=== PATIENT | female | born 1975 | race Caucasian/White ===

== ENCOUNTER 2017-01-28 22:35 | Inpatient (IN) | payer MEDICARE ==
--- NOTE | ~2017-01-28 | HP ---
Unit #: [id number] #: [id number] Patient: ALLY CHO [id number] [place] [address] [id number] I MR#: [id number] NAME: ALLY CHO. ROOM: [facility] Age: 41 Sex: F Admission Date: 01/28/2017 : 1975 Attending Physician: Carlos Calhoun M.D. Admitting Physician: Carlos Calhoun M.D. Primary Care Physician: Generic Doctor Not In System HISTORY AND PHYSICAL HISTORY OF PRESENT ILLNESS The patient states she is here due to depression, alcohol and heroin abuse. PAST MEDICAL HISTORY None. PAST SURGICAL HISTORY Partial hysterectomy and . ALLERGIES Toradol, oxycodone, Seroquel, Haldol and any product containing fish. SOCIAL HISTORY Positive for smoking, alcohol and drugs. FAMILY HISTORY Noncontributory. REVIEW OF SYSTEMS CONSTITUTIONAL: No fever or chills. HEENT: Denies any sore throat, ear pain or runny nose. CARDIOVASCULAR: Denies chest pain, irregular heart rhythm or palpitations. CHEST: Denies shortness of breath or cough. No hemoptysis. GASTROINTESTINAL: Denies nausea, vomiting, diarrhea or chronic constipation. ENDOCRINE: Denies history of increased thirst or urination. No recent significant weight loss or gain. GENITOURINARY: Denies dysuria, frequency, or hematuria. SKIN: Denies any rashes. HEMATOLOGIC: Denies history of increased bleeding or bruising. MUSCULOSKELETAL: Denies any hot, swollen joints. No generalized muscle pain. NEUROLOGIC: Denies problems with vision or speech. No frequent, severe headaches. No numbness, tingling or weakness in any extremities. Denies loss of bladder or bowel control. CURRENT MEDICATIONS None. PHYSICAL EXAMINATION VITAL SIGNS: Blood pressure 134/60, heart rate 88, respirations 18. HEIGHT: 6 feet. Unit #: [id number] #: [id number] Patient: ALLY CHO WEIGHT: 179 pounds. SKIN: Warm and dry without rash or lesion. Tattoo to bilateral lower extremities and left upper extremity. HEENT: Normocephalic. TMs not viewed. Oral and nasal passages clear. Conjunctivae clear. PERRLA. EOMs intact. NECK: Supple without lymphadenopathy or thyromegaly. HEART: Regular rate and rhythm without murmur. LUNGS: Clear. ABDOMEN: Soft, nontender, without masses or hepatosplenomegaly. : Not done. EXTREMITIES: No evidence of cyanosis, clubbing or edema. Moves all without focal deficit. NEUROLOGICAL: Grossly within normal limits. Cranial Nerves: II: Visual rodriguez are intact. III, IV AND : Extraocular movements are intact. Pupils are equal, round and reactive to light. V: Facial sensation is grossly normal. VII: Facial movements and expression are normal. VIII: Auditory acuity grossly intact. IX, X: Uvula is midline. Phonation is normal. XI: Patient shrugs shoulders and turns head normally. XII: Tongue protrudes in the midline. Sensory and Motor Function: Sensory and motor sensation is grossly normal. Motor: moves all extremities well. Coordination: Gait is normal. Deep Tendon Reflexes: Intact. IMPRESSION Psychiatric admission. RECOMMENDATIONS PSYCHIATRIC: Per psychiatrist. MEDICAL: No contraindications to participate in facility's activities. MEDICAL PROGNOSIS Good. Dictated by... Krystyna Knott/jj TD: 01/29/2017 19:00 JOB #: [id number] HISTORY AND PHYSICAL X Brit Mitchell APR X HISTORY AND PHYSICAL
--- NOTE | ~2017-01-28 | PN ---
Unit #: [id number] #: [id number] Patient: ALLY CHO [id number] [facility] [address] [place] [address] [id number] I MR#: [id number] NAME: ALLY CHO. ROOM: P110 Age: 41 Sex: F Admission Date: 01/28/2017 : 1975 Attending Physician: Carlos Calhoun M.D. Admitting Physician: Carlos Calhoun M.D. Primary Care Physician: Tacho Doctor Not In System [facility] PROGRESS NOTES DATE 02/02/2017 DISCUSSION The patient is expressing interest in possible residential chemical dependence treatment, but the next moment he is demanding discharge from the hospital stating that "they are not giving no fucking snacks or anything." I have agreed to increase her food portions to large ones, and I have encouraged the patient to remain in the hospital so that perhaps she can avail herself of more definitive aftercare and thus prevent the need for readmission in the next few days. She is agreeable. Dictated by... Carlos Calhoun M.D. CB/john TD: 02/02/2017 14:36 JOB #: [id number] [facility] PRO[facility] NOT[facility] Page 1 of 1 X Carlos Calhoun MD X PROGRESS NOTE
--- NOTE | ~2017-01-28 | PN ---
Unit #: [id number] #: [id number] Patient: ALLY CHO [id number] [facility] [address] [place] [address] [id number] I MR#: [id number] NAME: ALLY CHO. ROOM: P110 Age: 41 Sex: F Admission Date: 01/28/2017 : 1975 Attending Physician: Carlos Calhoun M.D. Admitting Physician: Carlos Calhoun M.D. Primary Care Physician: Generic Doctor Not In System [facility] PROGRESS NOTES DATE 01/31/2017 DISCUSSION The patient was resting comfortably when seen by this physician but is now demanding "something for anxiety. We have added Thorazine 50 mg q.6 h. p.r.n. Otherwise the patient's detox continues uneventfully. Dictated by... Carlos Calhoun M.D. CB/jt TD: 01/31/2017 18:17 JOB #: [id number] [facility] PROGRESS NOTES X Carlos Calhoun MD PROGRESS NOTE
--- NOTE | ~2017-01-28 | PN ---
Unit #: [id number] #: [id number] Patient: ALLY CHO [id number] [facility] [address] [place] [address] [id number] I MR#: [id number] NAME: ALLY CHO ROOM: [facility] Age: 41 Sex: F Admission Date: 01/28/2017 : 1975 Attending Physician: Carlos Calhoun M.D. Admitting Physician: Carlos Calhoun M.D. Primary Care Physician: Generic Doctor Not In System [facility] PROGRESS NOTES DATE 02/03/2017 DISCUSSION The patient is abed today. She offers no new complaints and states that she and her social media assistant are in contact with the [facility] regarding possible residential chemical dependence treatment at that facility. Dictated by... Carlos Calhoun M.D. CB/margaret TD: 02/03/2017 14:42 JOB #: [id number] [facility] PROGRESS NOTES Page 1 of 1 X Carlos Calhoun MD X PROGRESS NOTE
--- NOTE | ~2017-01-28 | PA ---
Unit #: [id number] #: [id number] Patient: ALLY CHO [id number] [facility] [address] [place] [address] [id number] I MR#: [id number] NAME: ALLY CHO. ROOM: P110 Age: 41 Sex: F Admission Date: 01/28/2017 : 1975 Date of Assessment: 01/29/2017 Attending Physician: Carlos Calhoun M.D. Admitting Physician: Carlos Calhoun M.D. Primary Care Physician: Generic Doctor Not In System PSYCHIATRIC ASSESSMENT IDENTIFYING INFORMATION The patient is a 41-year-old white female well known to this physician. She was last discharged on 12/20/2016 and returned complaining of suicidal ideation. CHIEF COMPLAINT None given. INFORMANT Patient, reliability is poor. HISTORY OF PRESENT ILLNESS The patient is a 41-year-old white female well known to this physician from multiple previous admissions to this facility. She is admitted with recurrent abuse of alcohol, heroin, and methamphetamine. The patient reports that she has been increasingly depressed recently and has not been attending to activities of daily living having increasing suicidal thoughts. The patient is currently abed and cannot be aroused for interview. For more complete history of present illness, please refer to previously dictated notes. PAST PSYCHIATRIC HISTORY Reviewed, no changes. PAST MEDICAL HISTORY Reviewed, no changes. MEDICATIONS At the time of admission, the patient has no home medications. ALLERGIES Toradol, oxycodone, Seroquel, Haldol, and fish-containing products. FAMILY HISTORY Reviewed, no changes. SOCIAL HISTORY Reviewed, no changes. MENTAL STATUS EXAMINATION Examination at this time reveals the patient to be an obese disheveled white female appearing her stated age. She is in no apparent physical distress at the time of examination. Further examination cannot take Unit #: [id number] #: [id number] Patient: ALLY CHO place if the patient cannot be aroused. ASSETS AND LIABILITIES The patient's assets to be assessed. Liabilities: Sociopathy, lack of resources, health issues. DIAGNOSTIC IMPRESSION 1. Dysthymic disorder. 2. Methamphetamine use disorder. 3. Alcohol use disorder. 4. Opioid use disorder. 5. Antisocial personality disorder. 6. Hepatitis C. 7. Obesity. TREATMENT PLAN The patient remains hospitalized for safety and stabilization. Routine detoxification protocol for opioids and alcohol has been initiated. The patient will participate in appropriate order of milieu activities. ESTIMATED LENGTH OF STAY 3 to 5 days. Dictated by... Machelle Kimball TD: 01/29/2017 14:56 JOB #: [id number] PSYCHIATRIC ASSESSMENT X Carlos Calhoun MD X PSYCHIATRIC ASSESSMENT
--- NOTE | ~2017-01-28 | CO ---
Unit #: [id number] #: [id number] Patient: REMA CHO [id number] [place] [address] [id number] I MR#: [id number] NAME: REMA CHO. ROOM: [facility] Age: 41 Sex: F Admission Date: 01/28/2017 : 1975 Attending Physician: Carlos Calhoun M.D. Consultation Date: 02/01/2017 CONSULTATION REPORT SUBJECTIVE Rema is a 41-year-old, admitted because of her continued drug use. On 02/01/2017, she complained of knee and foot pain. She denied any injury. She has been observed repeatedly by staff and by this practitioner, ambulating the hallways without difficulty or complaints of discomfort. On exam, there are no red swollen joints. Skin is intact. ASSESSMENT Musculoskeletal pain. She has Tylenol and may use this p.r.n. Dictated by... Jerrell OchoaALuke-Abdiaziz. for Machelle Whitney/viktoria TD: 02/05/2017 22:36 JOB #: [id number] CONSULTATION REPORT Page 1 of 1 X Anabella Thorne CONSULTATION REPORT
--- NOTE | ~2017-01-28 | PN ---
Unit #: [id number] #: [id number] Patient: ALLY CHO [id number] [facility] [address] [place] [address] [id number] I MR#: [id number] NAME: ALLY CHO. ROOM: [facility] Age: 41 Sex: F Admission Date: 01/28/2017 : 1975 Attending Physician: Carlos Calhoun M.D. Admitting Physician: Carlos Calhoun M.D. Primary Care Physician: Tacho Doctor Not In System [facility] PROGRESS NOTES DATE 02/01/2017 DISCUSSION The patient remains abed with little participation within the therapeutic milieu. She is complaining of some foot and leg pain, and I will ask for med consult related to this. She is also requesting a sexually transmitted diseases panel. She is expressing some interest in residential chemical dependence treatment, but then actually requests discharge. She does agree to remain in the hospital for at least tomorrow so that she can discuss her treatment options with her director social welfare. Dictated by... Carlos Calhoun M.D. MISAEL/john TD: 02/01/2017 14:22 JOB #: [id number] [facility] PROGRESS NOTES Page 1 of 1 X Carlos Calhoun MD PROGRESS NOTE
--- NOTE | ~2017-01-28 | PN ---
Unit #: [id number] #: [id number] Patient: ALLY CHO [id number] [facility] [address] [place] [address] [id number] I MR#: [id number] NAME: ALLY CHO. ROOM: [facility] Age: 41 Sex: F Admission Date: 01/28/2017 : 1975 Attending Physician: Carlos Calhoun M.D. Admitting Physician: Carlos Calhoun M.D. Primary Care Physician: Tacho Doctor Not In System [facility] PROGRESS NOTES DATE 01/30/2017 DISCUSSION The patient abed resting comfortably today. Staff reports no management issues. We continue current treatment. Dictated by... Carlos Calhoun M.D. CB/jt TD: 01/30/2017 21:24 JOB #: [id number] [facility] PROGRESS NOTES X Carlos Calhoun MD X PROGRESS NOTE
--- NOTE | ~2017-01-28 | DS ---
Unit #: [id number] #: [id number] Patient: ALLY CHO [id number] [facility] [address] [place] [address] [id number] I MR#: [id number] NAME: ALLY CHO. ROOM: [facility] Age: 41 Sex: F Admission Date: 01/28/2017 : 1975 Discharge Date: 02/04/2017 Attending Physician: Carlos Calhoun M.D. DISCHARGE SUMMARY REASON FOR ADMISSION The patient is a 41-year-old white female, admitted with ongoing alcohol and polysubstance abuse and suicidal ideation. HOSPITAL COURSE The patient was admitted to the [address] [place] [address] unit and placed on suicide precautions. Routine detoxification protocol for opioids and alcohol and sedative-hypnotics was ordered. The patient had little in the way of signs or symptoms of withdrawal. Routine duty to warn was undertaken. The patient was placed on Thorazine 50 mg q.6 hours p.r.n. anxiety. On 01/31/2017, she had initially made statements regarding a wish to render residential chemical dependence treatment and on 02/04/2017, arrangements were made for the patient to go to the [facility] program. Discharge was ordered. FINAL DIAGNOSES Dysthymic disorder; methamphetamine use disorder; alcohol use disorder; opioid use disorder; antisocial personality disorder; hepatitis C; obesity. DISPOSITION ON DISCHARGE The patient is discharged on the following medications; none. No dietary or physical restrictions were placed upon the patient at the time of discharge. FOLLOWUP Followup will take place through the auspices of [facility] mental [facility] resources and the [facility]. PROGNOSIS The patient's prognosis remains guarded. Dictated by... Carlos Calhoun M.D. CB/viktoria TD: 02/05/2017 06:49 JOB #: [id number] Unit #: [id number] #: [id number] Patient: ALLY CHO DISCHARGE SUMMARY Page 1 of 1 X Carlos Calhoun MD X DISCHARGE SUMMARY
[~2017-01-28 22:35] MED LIST: DEPAKOTE PO; SEROQUEL PO
[2017-01-30 12:02] LABS: ALBUMIN SERUM 4.1 g/dL (3.5-5.0); BILIRUBIN,TOTAL 0.6 mg/dL (0.2-2.0); BUN/CREATININE RATIO 13.33; CALCIUM SERUM 9.5 mg/dL (8.4-10.2); CREATININE SERUM 1.2 mg/dL (0.6-1.4); GLOM FILT RATE Estimated 52.4 mL/min (>60); POTASSIUM 4.8 mmol/L (3.5-5.1); PROTEIN TOTAL SERUM 7.4 g/dL (6.0-8.3)
[2017-01-30 12:07] LABS: THYROID STIMULATING HORMONE 1.96 uIU/ml (0.34-5.60)
[2017-01-30 12:14] LABS: FREE THYROXIN (T4) 0.81 ng/dL (0.58-1.64)
[2017-01-30 12:51] LABS: BASOPHIL% 0.5 % (0-2.5); DIFF IND NO; EOSINOPHIL# 0.3 X10e3 (0-0.7); EOSINOPHIL% 5.5 % (0.0-7.0); HEMATOCRIT 42.8 % (35.0-45.0); LYMPHOCYTE# 2.4 X10e3 (1.0-3.5); LYMPHOCYTE% 48.4 % (17.0-45.0); MEAN CELL VOLUME 96.7 FL (83-96); MEAN CORPUSCULAR HEMOGLOBIN 31.6 PG (28-34); MEAN CORPUSCULAR HGB CONC 32.6 g/dL (30-36); MEAN PLATELET VOLUME 9.6 FL (6.5-11.5); MONOCYTE# 0.6 X10e3 (0-1.0); MONOCYTE% 12.6 % (3.0-12.0); NEUTROPHIL# 1.6 X10e3 (1.5-7.1); PLATELET COUNT 234 X10e3 (140-420); RED BLOOD COUNT 4.43 X10e (3.90-5.30); RED CELL DISTRIBUTION WIDTH 14.2 % (11.0-15.5)
[2017-02-02 09:37] LABS: URINE SOURCE CLEAN CATCH
[2017-02-02 12:34] LABS: URINE BILIRUBIN NEG (NEG); URINE BLOOD NEG (NEG); URINE COLOR YELLOW; URINE GLUCOSE NEG (NEG); URINE KETONE NEG (NEG); URINE LEUKOCYTE ESTERASE TRACE (NEG); URINE NITRATE NEG (NEG); URINE PROTEIN NEG (NEG); URINE SPECIFIC GRAVITY 1.011 (1.003-1.035); URINE UROBILINOGEN 0.2 MG/DL (NEG)
[2017-02-02 12:39] LABS: URBCS1 AUWI 0-2 /[HPF] (0-2); URINE BACTERIA AUWI NEG (NEGATIVE); URINE SQUAMOUS EPITHELIAL CELL NONE SEEN /[HPF]; UWBCS1 AUWI 0-2 (0-5)
[2017-02-02 12:54] LABS: AMPHETAMINE NEG (NEG); BARBITURATES NEG (NEG); BENZODIAZEPINES POS (NEG); COCAINE NEG (NEG); MARIJUANA NEG (NEG); OPIATES NEG (NEG); TRICYCLIC ANTIDEPRESSANTS NEG (NEG); U METHADONE NEG (NEG)
[2017-02-02 12:56] LABS: URINE APPEARANCE CLEAR
[2017-02-04 19:07] LABS: HA AB IGM (HEPPAN) Nonreactive (Nonreactive); HB CORE AB IGM (HEPPAN) Reactive (Nonreactive); HB S AG (HEPPAN) Nonreactive (Nonreactive); HEP C AB (HEPPAN) Reactive (Nonreactive)
[2017-02-04 19:34] LABS: CHLAMYDIA TRACH Not Detected (Not Detected); N GONOR Not Detected (Not Detected)
== END 2017-02-04 16:07 | disposition home or self-care (01) | DRG 881 ==
LOC: P1S 22:35
PROVIDERS: Specialist
PROC: HZ2ZZZZ Detoxification Services for Substance Abuse Treatment (ICD-10-PCS; principal; 2017-01-28)
DX: F34.1 Dysthymic disorder (principal); F11.20 Opioid dependence, uncomplicated; R45.851 Suicidal ideations; F15.20 Other stimulant dependence, uncomplicated; F10.20 Alcohol dependence, uncomplicated; F60.2 Antisocial personality disorder; B19.20 Unspecified viral hepatitis C without hepatic coma; E66.9 Obesity, unspecified; F17.200 Nicotine dependence, unspecified, uncomplicated; M79.1 Myalgia
CPT/HCPCS: 80053; 80074; 80307; 81003; 84439; 84443; 84703; 85025; 86592; 87491; 87522; 87591; 87806

== ENCOUNTER 2017-03-11 02:59 | Inpatient (IN) | payer MEDICARE ==
--- NOTE | ~2017-03-11 | PA ---
Unit #: [id number] #: [id number] Patient: ALLY CHO [id number] [facility] [address] [place] [address] [id number] I MR#: [id number] NAME: ALLY CHO. ROOM: P204 Age: 41 Sex: F Admission Date: 03/11/2017 : 1975 Date of Assessment: 03/11/2017 Attending Physician: Carlos Calhoun M.D. Admitting Physician: aCrlos Cahloun M.D. Primary Care Physician: Primary Care Physician No PSYCHIATRIC ASSESSMENT IDENTIFYING INFORMATION The patient is a 41-year-old white female well known to this physician. She is admitted voicing positive suicidal ideation and recurrent substance abuse. CHIEF COMPLAINT None given. INFORMANT Chart, patient cannot be aroused for interview. HISTORY OF PRESENT ILLNESS The patient is a 41-year-old white female well known to this facility last discharged in late January of this year. She was scheduled to go to the [facility] but is unclear whether she went there for the chemical dependence program whatever the case the patient has been once again homeless and using heroin, alcohol and methamphetamine. The patient required p.r.n. Thorazine this morning after coming verbally aggressive towards staff and cannot be aroused for interview. She was voicing positive suicidal ideation with a plan to overdose when admitted. For more complete history of present illness please refer to previous dictated notes. PAST PSYCHIATRIC HISTORY Reviewed, no changes. PAST MEDICAL HISTORY Reviewed, no changes. MEDICATIONS None ALLERGIES None. FAMILY HISTORY Reviewed, no changes. SOCIAL HISTORY Reviewed, no changes. MENTAL STATUS EXAMINATION Examination at this time reveals the patient to be an obese soundly Unit #: [id number] #: [id number] Patient: ALLY CHO sleeping white female appearing her stated age. She is in no apparent physical distress. Further examination cannot take place secondary to the patient's somnolence. ASSETS AND LIABILITIES The patient's assets to be assessed. Liabilities: Sociopathy, lack of resources, health issues. DIAGNOSTIC IMPRESSION 1. Dysthymic disorder. 2. Methamphetamine use disorder. 3. Alcohol use disorder. 4. Opioid use disorder. 5. Antisocial personality disorder. 6. Hepatitis C. 7. Obesity. TREATMENT PLAN The patient remains hospitalized for safety and stabilization. A routine detoxification protocol for opioids and alcohol has been initiated and suicidal precautions are in place. I will add p.r.n. Thorazine which the patient has successfully taken in the past to address symptoms of anxiety. ESTIMATED LENGTH OF STAY 5 to 7 days. Dictated by... Carlos Calhoun M.D. MISAEL/jt TD: 03/11/2017 21:05 JOB #: [id number] PSYCHIATRIC ASSESSMENT Page 1 of 1 X Carlos Calhoun MD X PSYCHIATRIC ASSESSMENT
--- NOTE | ~2017-03-11 | HP ---
Unit #: [id number] #: [id number] Patient: REMA CHO [id number] [place] [address] [id number] I MR#: [id number] NAME: REMA CHO. ROOM: P204 Age: 41 Sex: F Admission Date: 03/11/2017 : 1975 Attending Physician: Carlos Calhoun M.D. Admitting Physician: Carlos Calhoun M.D. Primary Care Physician: Primary Care Physician No HISTORY AND PHYSICAL HISTORY OF PRESENT ILLNESS Rema is a 41 year old admitted to [address] [place] [address] because of her continued polysubstance abuse. She has had numerous admissions to this facility. PAST MEDICAL HISTORY 1. Long history of polysubstance abuse to include IV drugs. 2. High blood pressure. 3. Degenerative disc disease. a. Chronic pain. 4. Asthma. 5. Hepatitis C. 6. History of benign pituitary tumor. a. Radiation therapy. 7. Seasonal allergies. 8. Scoliosis. 9. Morbid obesity. PAST SURGICAL HISTORY x4 ALLERGIES Percocet, Toradol. SOCIAL HISTORY Smokes one pack per day. Drinks alcohol on occasion. Admits to a long history of poly illicit substance abuse to include IV heroin and methamphetamine. FAMILY HISTORY Medically noncontributory. REVIEW OF SYSTEMS CONSTITUTIONAL: No fever or chills. HEENT: Patient reports head congestion associated with severe sore throat for the past 48 hours. She denies any shortness of breath or increased temperatures. CARDIOVASCULAR: Denies chest pain, irregular heart rhythm or palpitations. CHEST: Denies shortness of breath or cough. No hemoptysis. GASTROINTESTINAL: Denies nausea, vomiting, diarrhea or chronic constipation. ENDOCRINE: Denies history of increased thirst or urination. No recent significant weight loss or gain. Unit #: [id number] #: [id number] Patient: REMA CHO GENITOURINARY: Denies dysuria, frequency, or hematuria. SKIN: Denies any rashes. HEMATOLOGIC: Denies history of increased bleeding or bruising. MUSCULOSKELETAL: Denies any hot, swollen joints. No generalized muscle pain. NEUROLOGIC: Denies problems with vision or speech. No frequent, severe headaches. No numbness, tingling or weakness in any extremities. Denies loss of bladder or bowel control. CURRENT MEDICATIONS 1. Thorazine 50 mg q.6 hours p.r.n. 2. Nicotine patch 14 mg q day 3. Milk of Magnesia p.r.n. 4. Maalox p.r.n. 5. Tylenol p.r.n. PHYSICAL EXAMINATION GENERAL: Alert, well-nourished, in no apparent distress. VITAL SIGNS: Blood pressure 120/74, heart rate 86, respirations 16, temperature 98.6. WEIGHT: 172 pounds. HEIGHT: 6'0". SKIN: Warm and dry without rash or lesion. HEENT: Normocephalic. TMs not viewed. Oral and nasal passages clear. Conjunctivae clear. Pupils equal, round and reactive to light and accommodation. Extraocular movements intact. NECK: Supple without lymphadenopathy or thyromegaly. HEART: Regular rate and rhythm without murmur. LUNGS: Clear. ABDOMEN: Soft, nontender. : Not done. EXTREMITIES: No evidence of cyanosis, clubbing or edema. Moves all extremities without focal deficit. NEUROLOGICAL: Grossly within normal limits. Cranial Nerves: II: Visual rodriguez are intact. III, IV AND : Extraocular movements are intact. Pupils are equal, round and reactive to light. V: Facial sensation is grossly normal. VII: Facial movements and expression are normal. VIII: Auditory acuity grossly intact. IX, X: Uvula is midline. Phonation is normal. XI: Patient shrugs shoulders and turns head normally. XII: Tongue protrudes in the midline. Sensory and Motor Function: Sensory and motor sensation is grossly normal. Motor: moves all extremities well. Coordination: Gait is normal. Deep Tendon Reflexes: Intact. IMPRESSION Psychiatric admission RECOMMENDATIONS PSYCHIATRIC: Per psychiatrist. MEDICAL: 1. I see no contraindications to participating in facility's activities. 2. Start Z-Bacilio as directed. MEDICAL PROGNOSIS Good. Unit #: [id number] #: [id number] Patient: REMA CHO MEDICAL CONDITION Stable. Dictated by... Anabella Thorne P.A.-C. for Machelle Whitney/jt TD: 03/11/2017 23:34 JOB #: [id number] HISTORY AND PHYSICAL Page 1 of 1 X Anabella Thorne HISTORY AND PHYSICAL
--- NOTE | ~2017-03-11 | PN ---
Unit #: [id number] #: [id number] Patient: ALLY CHO [id number] [facility] [address] [place] [address] [id number] I MR#: [id number] NAME: ALLY CHO. ROOM: P113 Age: 41 Sex: F Admission Date: 03/11/2017 : 1975 Attending Physician: Carlos Calhoun M.D. Admitting Physician: Carlos Calhoun M.D. Primary Care Physician: Primary Care Physician Maureen STANTON PROGRESS NOTES DATE 03/13/2017 DISCUSSION The patient seems to be in brighter spirits today and states that she feels "much calmer" with initiation of Depakote and Remeron. She slept well and is brighter and less verbally abusive than is her general presentation. We continue current treatment and are working towards a suitable psychiatric/CD disposition. Dictated by... Carlos Calhoun M.D. CB/jt TD: 03/14/2017 02:54 JOB #: [id number] [facility] PROGRESS NOTES Page 1 of 1 X Carlos Calhoun MD X PROGRESS NOTE
--- NOTE | ~2017-03-11 | DS ---
Unit #: [id number] #: [id number] Patient: ALLY CHO [id number] [place] [address] [id number] I MR#: [id number] NAME: ALLY CHO. ROOM: 13 Age: 41 Sex: F Admission Date: 03/11/2017 : 1975 Discharge Date: 03/14/2017 Attending Physician: Carlos Calhoun M.D. Primary Care Physician: Primary Care Physician No DISCHARGE SUMMARY REASON FOR ADMISSION The patient is a 41-year-old, , white female, admitted to the hospital voicing positive suicidal ideation with a recent relapse of alcohol and heroin use. HOSPITAL COURSE The patient was admitted initially to the [facility] unit, but was transferred to the [address] [place] [address] unit after getting into an altercation with a peer. On 03/12/2017, the patient requested initiation of Depakote, Remeron, and medication regimen which she states had been successful for her in the past. The patient showed remarkably rapid response to this medication. She was much calmer and pleasant in her actions with peers and staff, and was sleeping better. By 03/14/2017, the patient requested discharge and was agreeable with plan for followup in the intensive outpatient program provided by this facility. As per her request, discharge was ordered. FINAL DIAGNOSES Bipolar disorder, most recent episode depressed; alcohol use disorder; opioid use disorder; antisocial personality disorder. DISPOSITION ON DISCHARGE The patient is discharged on the following medications: Depakote ER 500 mg two tablets at bedtime for mood stabilization and Remeron 15 mg at bedtime for depression. DISCHARGE INSTRUCTIONS No dietary or physical restrictions were placed on the patient at the time of discharge. FOLLOWUP Followup will take place through the auspices of community mental health resources and the patient will be referred to the intensive outpatient chemical dependency program provided by this facility. PROGNOSIS The patient's prognosis remains somewhat guarded. Dictated by... Calros Calhoun M.D. MISAEL/viktoria Unit #: [id number] #: [id number] Patient: ALLY CHO TD: 03/14/2017 18:31 JOB #: [id number] DISCHARGE SUMMARY Page 1 of 1 X Carlos Calhoun MD DISCHARGE SUMMARY
--- NOTE | ~2017-03-11 | PN ---
Unit #: [id number] #: [id number] Patient: ALYL CHO [id number] [facility] [address] [place] [address] [id number] I MR#: [id number] NAME: ALLY CHO. ROOM: P204 Age: 41 Sex: F Admission Date: 03/11/2017 : 1975 Attending Physician: Carlos Calhoun M.D. Admitting Physician: Carlos Calhoun M.D. Primary Care Physician: Primary Care Physician Maureen STANTON PROGRESS NOTES DATE 03/12/2017 DISCUSSION The patient has been more agitated this morning and has exhibited some delusional thinking regarding a hot repairman whom she feels is trying to harm her in some way. She is requesting today initiation of Depakote and Remeron, and these medications will be initiated as per her request. She does report a history of positive response to this med combination. Dictated by... Carlos Calhoun M.D. CB/bzshawn TD: 03/12/2017 13:59 JOB #: [id number] [facility] PROGRESS NOTES Page 1 of 1 X Carlos Calhoun MD PROGRESS NOTE
== END 2017-03-14 15:07 | disposition home or self-care (01) | DRG 881 ==
LOC: P1S 02:59 → P2S 18:06 → P1S 03-12 15:20
PROC: HZ2ZZZZ Detoxification Services for Substance Abuse Treatment (ICD-10-PCS; principal; 2017-03-11)
DX: F34.1 Dysthymic disorder (principal); F11.20 Opioid dependence, uncomplicated; F15.20 Other stimulant dependence, uncomplicated; F10.20 Alcohol dependence, uncomplicated; F60.2 Antisocial personality disorder; B19.20 Unspecified viral hepatitis C without hepatic coma; E66.9 Obesity, unspecified; G89.29 Other chronic pain; J45.909 Unspecified asthma, uncomplicated; F17.210 Nicotine dependence, cigarettes, uncomplicated

== ENCOUNTER 2017-04-23 04:00 | Inpatient (IN) | payer MEDICARE, OTHER ==
--- NOTE | ~2017-04-23 | CO ---
Unit #: [id number] #: [id number] Patient: ALLY CHO [id number] [facility] [address] [place] [address] [id number] MR#: [id number] NAME: ALLY CHO. ROOM: [facility] Age: 41 Sex: F Admission Date: 04/23/2017 : 1975 Attending Physician: Carlos Calhoun M.D. Primary Care Physician: Generic Doctor Not In System Consultation Date: 04/24/2017 CONSULTATION REPORT ORDERING PROVIDER Dr. Calhoun. REASON FOR CONSULT Right hand decreased range of motion and edema. SUBJECTIVE When I came into the patient's room and asked her about her hand, she said that it was fine and there were no problems. She then proceeded to list off number other problems that she had including scabies, an infection in her foot and pain in her feet. After discussing all of these things, then she said that yes, she did have swelling in her hands and was requesting Lasix. Her assessment did not show any edema in any of her extremities, and she had a very small area of fungal infection on her left foot. At this time, no orders were written because the patient is being discharged. She was encouraged to follow up with her primary care outpatient. Dictated by... Krystyna Dumont/viktoria TD: 04/25/2017 01:43 JOB #: [id number] CONSULTATION REPORT Page 1 of 1 X MITUL HAHN APRN CONSULTATION REPORT
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
--- NOTE | ~2017-04-23 | PA ---
Unit #: [id number] #: [id number] Patient: ALLY CHO [id number] [facility] [address] [place] [address] [id number] I MR#: [id number] NAME: ALLY CHO. ROOM: P207 Age: 41 Sex: F Admission Date: 04/23/2017 : 1975 Date of Assessment: 04/23/2017 Attending Physician: Carlos Calhoun M.D. Admitting Physician: Carlos Calhoun M.D. Primary Care Physician: Generic Doctor Not In System PSYCHIATRIC ASSESSMENT IDENTIFYING INFORMATION The patient is a 41-year-old white female well known to this physician. She is readmitted reporting abuse of heroin, crack, and alcohol reporting positive suicidal ideation. CHIEF COMPLAINT None given. INFORMANT(S) Chart, reliability good. Patient cannot be aroused for interview. HISTORY OF PRESENT ILLNESS The patient is a 41-year-old white female well known to this physician from multiple previous admissions to this facility. She is admitted with recurrent abuse of alcohol, heroin, and methamphetamine. The patient had reported positive suicidal ideation related to a recent breakup. The patient has a history of multiple previous admissions to this facility and was last discharged from this facility in February of this year. When seen today, the patient was sleeping soundly and cannot be aroused for interview. PAST PSYCHIATRIC HISTORY Reviewed, no changes. PAST MEDICAL HISTORY Reviewed, no changes. MEDICATIONS None. ALLERGIES Haldol, Ketorolac, oxycodone, and Seroquel. FAMILY HISTORY Reviewed, no changes. SOCIAL HISTORY Reviewed, no changes. MENTAL STATUS EXAMINATION Examination at this time reveals the patient to be a disabled white female appearing stated age. She is sleeping soundly, and multiple attempts to arouse her are unsuccessful. Unit #: [id number] #: [id number] Patient: ALLY CHO ASSETS AND LIABILITIES The patient's assets are to be assessed. Liabilities: Lack of resources. DIAGNOSTIC IMPRESSION 1. Opioid use disorder. 2. Alcohol use disorder. 3. Cocaine use disorder. 4. Antisocial personality use disorder. 5. Dysthymic disorder. TREATMENT PLAN The patient remains hospitalized for safety and stabilization. Appropriate routine detoxification protocols will be initiated. ESTIMATED LENGTH OF STAY 3 to 5 days. The followup will take place through the auspices of [facility]. Dictated by... Machelle Kimball TD: 04/23/2017 13:27 JOB #: [id number] PSYCHIATRIC ASSESSMENT Page 1 of 1 X Carlos Calhoun MD X PSYCHIATRIC ASSESSMENT
--- NOTE | ~2017-04-23 | HP ---
Unit #: [id number] #: [id number] Patient: ALLY CHO [id number] [place] [address] [id number] I MR#: [id number] NAME: ALLY CHO. ROOM: [facility] Age: 41 Sex: F Admission Date: 04/23/2017 : 1975 Attending Physician: Carlos Calhoun M.D. Admitting Physician: Carlos Calhoun M.D. Primary Care Physician: Generic Doctor Not In System HISTORY AND PHYSICAL HISTORY OF PRESENT ILLNESS The patient is a 41-year-old female admitted to [address] [place] [address] on 04/23/2017 for suicidal ideations and to detox from heroin, crack and alcohol. PAST MEDICAL HISTORY 1. Polysubstance use 2. Hepatitis C 3. Nicotine dependence 4. Hypertension 5. Degenerative disc disease 6. Asthma 7. History of pituitary tumor PAST SURGICAL HISTORY 1. Hysterectomy 2. times four SOCIAL HISTORY She is disabled and homeless. She smokes one pack of cigarettes daily, drinks a pint of [employer]'s 7 per day and uses crack and heroin on a daily basis. FAMILY MEDICAL HISTORY Noncontributory. ALLERGIES Haldol, oxycodone, ketorolac and Seroquel. CURRENT MEDICATIONS The patient is not on any home medications. REVIEW OF SYSTEMS CONSTITUTIONAL: No fever or chills. HEENT: Denies any sore throat, ear pain or runny nose. CARDIOVASCULAR: Denies chest pain, irregular heart rhythm or palpitations. CHEST: Denies shortness of breath or cough. No hemoptysis. GASTROINTESTINAL: Denies nausea, vomiting, diarrhea or chronic constipation. ENDOCRINE: Denies history of increased thirst or urination. No recent significant weight loss or gain. GENITOURINARY: Denies dysuria, frequency, or hematuria. SKIN: Denies any rashes. HEMATOLOGIC: Denies history of increased bleeding or bruising. Unit #: [id number] #: [id number] Patient: ALLY CHO MUSCULOSKELETAL: Denies any hot, swollen joints. No generalized muscle pain. NEUROLOGIC: Denies problems with vision or speech. No frequent, severe headaches. No numbness, tingling or weakness in any extremities. Denies loss of bladder or bowel control. PHYSICAL EXAM GENERAL: She is awake, alert and oriented in no acute distress. VITAL SIGNS: Temperature 98.2, heart rate 92, respiration 18, blood pressure 130/90. HEIGHT: 6'0". WEIGHT: 172 pounds. SKIN: Warm and dry without rash or lesion. HEENT: Normocephalic. TMs not viewed. Oral and nasal passages clear. Conjunctivae clear. PERRLA. EOMs intact. NECK: Supple without lymphadenopathy or thyromegaly. HEART: Regular rate and rhythm without murmur. LUNGS: Clear. ABDOMEN: Soft, nontender. : Not done. EXTREMITIES: No evidence of cyanosis, clubbing or edema. Moves all without focal deficit. NEUROLOGICAL: Grossly within normal limits. Cranial Nerves: II: Visual rodriguez are intact. III, IV AND : Extraocular movements are intact. Pupils are equal, round and reactive to light. V: Facial sensation is grossly normal. VII: Facial movements and expression are normal. VIII: Auditory acuity grossly intact. IX, X: Uvula is midline. Phonation is normal. XI: Patient shrugs shoulders and turns head normally. XII: Tongue protrudes in the midline. Sensory and Motor Function: Sensory and motor sensation is grossly normal. Motor: moves all extremities well. IMPRESSION 1. Psychiatric admission. 2. Hepatitis C. 3. Nicotine dependence. 4. Polysubstance abuse. 5. Hypertension. 6. Degenerative disc disease. 7. Asthma. 8. Pituitary tumor. RECOMMENDATIONS Psychiatric per psychiatrist. MEDICAL: No contraindication to participate in facility activities. MEDICAL PROGNOSIS Good. MEDICAL CONDITION Stable. Unit #: [id number] #: [id number] Patient: ALLY CHO Dictated by... Krystyna Dumont/jt TD: 04/25/2017 05:33 JOB #: [id number] HISTORY AND PHYSICAL Page 1 of 1 X MITUL HAHN APRN HISTORY AND PHYSICAL
== END 2017-04-24 15:26 | disposition home or self-care (01) | DRG 897 ==
LOC: P2S 07:31 → P1S 20:19
PROC: HZ2ZZZZ Detoxification Services for Substance Abuse Treatment (ICD-10-PCS; principal; 2017-04-23)
DX: F11.10 Opioid abuse, uncomplicated (principal); F10.10 Alcohol abuse, uncomplicated; F14.10 Cocaine abuse, uncomplicated; F34.1 Dysthymic disorder; F60.2 Antisocial personality disorder; B19.20 Unspecified viral hepatitis C without hepatic coma; F17.210 Nicotine dependence, cigarettes, uncomplicated; J45.909 Unspecified asthma, uncomplicated; Z90.710 Acquired absence of both cervix and uterus; Z59.0 Homelessness

== ENCOUNTER 2017-04-26 03:00 | Inpatient (IN) | payer MEDICARE, OTHER ==
--- NOTE | ~2017-04-26 | PA ---
Unit #: [id number] #: [id number] Patient: ALLY CHO [id number] [place] [address] [id number] I MR#: [id number] NAME: ALLY CHO. ROOM: P131 Age: 41 Sex: F Admission Date: 04/26/2017 : 1975 Date of Assessment: 04/27/2017 Attending Physician: Carlos Calhoun M.D. Admitting Physician: Carlos Calhoun M.D. Primary Care Physician: Generic Doctor Not In System PSYCHIATRIC ASSESSMENT IDENTIFYING INFORMATION The patient is a 41-year-old white female with a long history of polysubstance dependence. She was just discharged from this facility on 04/24 but returned on 04/26 claiming to be suicidal. INFORMANT(S) Chart. Patient could not be aroused for interview. CHIEF COMPLAINT None given. HISTORY OF PRESENT ILLNESS The patient is a 41-year-old white female with an extensive history of chemical dependence and antisocial personality disorder. The patient had reported to this facility yesterday voicing positive suicidal ideation. 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 When seen today, the patient is abed and cannot be aroused for interview, As noted previously, she was last discharged from this facility 2 days prior to readmission. PAST PSYCHIATRIC HISTORY Reviewed, no changes. FAMILY HISTORY/SOCIAL HISTORY Reviewed, no changes. MEDICAL HISTORY No changes. MEDICATION HISTORY 1. Depakote. 2. Doxepin. 3. Zoloft. 4. Prazosin by history. ALLERGIES Haldol, ketorolac, oxycodone, Seroquel, fish. MENTAL STATUS EXAM At this time, reveals the patient to be an obese, disheveled, soundly sleeping white female appearing somewhat older than her stated age. She is Unit #: [id number] #: [id number] Patient: ALLY CHO in no apparent physical distress at time of examination. Further interview cannot take place secondary to the patient's somnolence. ASSETS AND LIABILITIES Patient's assets to be assessed. Liabilities, profound sociopathy, lack of resources, lack of investment in treatment. ADMITTING DIAGNOSES 1. Dysthymic disorder. 2. Opioid use disorder. 3. Alcohol use disorder. 4. Psychostimulant use disorder. 5. Antisocial personality disorder. 6. Hepatitis C. PSYCHIATRIC PLAN/TREATMENT GOALS The patient remains hospitalized for safety and stabilization. The patient's chart indicates that she has previously been prescribed Depakote, doxepin, Zoloft and prazosin. I will go ahead and restart these medicines though it is my suspicion that the patient's potential for any sort of compliance with these medications outside the hospital is a slim one. It is my expectation that the patient will likely awaken from her current slumber cuss out staff and demand discharge from the hospital which will likely be ordered in short order as this has been her case on numerous previous hospitalizations. ESTIMATED LENGTH OF STAY Two to three days. Dictated by... Carlos Calhoun M.D. MISAEL/jj TD: 04/27/2017 15:49 JOB #: [id number] PSYCHIATRIC ASSESSMENT Page 1 of 1 X Carlos Calhoun MD X PSYCHIATRIC ASSESSMENT
--- NOTE | ~2017-04-26 | DS ---
Unit #: [id number] #: [id number] Patient: ALLY CHO [id number] [facility] [address] [place] [address] [id number] I MR#: [id number] NAME: ALLY CHO. ROOM: P131 Age: 41 Sex: F Admission Date: 04/26/2017 : 1975 Discharge Date: 04/28/2017 Attending Physician: Carlos Calhoun M.D. Primary Care Physician: Generic Doctor Not In System DISCHARGE SUMMARY REASON FOR ADMISSION The patient is a 41-year-old, , white female, admitted to the [address] [place] [address] complaining of suicidal ideation and polysubstance use. HOSPITAL COURSE The patient was admitted to the [address] [place] [address] and placed on suicide precautions. The patient was placed on suicide precautions. No medications were ordered apart from p.r.n. Thorazine, not surprisingly on the second day of hospitalization after having been verbally abusive towards staff. The patient demanded discharge from the hospital as she has on so many previous occasions and as per her request, discharge was ordered. FINAL DIAGNOSES Methamphetamine use disorder, opioid use disorder, alcohol use disorder, antisocial personality disorder, malingering. DISPOSITION ON DISCHARGE No psychotropic or other medications were ordered at the time of discharge. FOLLOWUP Followup will take place through the auspices of community mental health resources. PROGNOSIS The patient's prognosis remains guarded. Dictated by... Carlos Calhoun M.D. MISAEL/viktoria TD: 04/28/2017 17:08 JOB #: [id number] Unit #: [id number] #: [id number] Patient: ALLY CHO DISCHARGE SUMMARY Page 1 of 1 X Carlos Calhoun MD X DISCHARGE SUMMARY
--- NOTE | ~2017-04-26 | HP ---
Unit #: [id number] #: [id number] Patient: REMA CHO [id number] [facility] [address] [place] [address] [id number] I MR#: [id number] NAME: REMA CHO. ROOM: P131 Age: 41 Sex: F Admission Date: 04/26/2017 : 1975 Attending Physician: Carlos Calhoun M.D. Admitting Physician: Carlos Calhoun M.D. Primary Care Physician: Generic Doctor Not In System HISTORY AND PHYSICAL Rema is a 41 year old admitted to [address] [place] [address] because of her continued polysubstance abuse. She was just discharged from this facility. Patient was seen and H and P dated 04/24/17 was reviewed. This is current. No changes. Please see H and P dated 04/24/17. Dictated by... Anabella Thorne P.A.-C. for Machelle Whitney/jj TD: 04/27/2017 22:39 JOB #: [id number] HISTORY AND PHYSICAL Page 1 of 1 X Anabella Thorne HISTORY AND PHYSICAL
[2017-04-27 10:18] LABS: AMPHETAMINE NEG (NEG); BARBITURATES NEG (NEG); BENZODIAZEPINES NEG (NEG); COCAINE POS (NEG); MARIJUANA NEG (NEG); OPIATES POS (NEG); TRICYCLIC ANTIDEPRESSANTS NEG (NEG); U METHADONE NEG (NEG)
== END 2017-04-28 15:24 | disposition home or self-care (01) | DRG 881 ==
LOC: P1S 19:35
PROVIDERS: Specialist
DX: F34.1 Dysthymic disorder (principal); F11.20 Opioid dependence, uncomplicated; F15.20 Other stimulant dependence, uncomplicated; F10.20 Alcohol dependence, uncomplicated; F60.2 Antisocial personality disorder; B19.20 Unspecified viral hepatitis C without hepatic coma
CPT/HCPCS: 80307

== ENCOUNTER 2017-05-21 19:00 | Inpatient (IN) | payer MEDICARE, OTHER ==
--- NOTE | ~2017-05-21 | PN ---
Unit #: [id number] #: [id number] Patient: ALLY CHO [id number] [facility] [address] [place] [address] [id number] I MR#: [id number] NAME: ALLY CHO. ROOM: P202 Age: 42 Sex: F Admission Date: 05/21/2017 : 1975 Attending Physician: Carlos Calhoun M.D. Admitting Physician: Carlos Calhoun M.D. Primary Care Physician: Tacho Doctor Not In System [facility] PROGRESS NOTES DATE 05/23/2017 DISCUSSION The patient is abed resting comfortably. Staff reports no management issues, and her detox continues uneventfully. Dictated by... Carlos Calhoun M.D. CB/john TD: 05/23/2017 13:48 JOB #: [id number] [facility] PROGRESS NOTES Page 1 of 1 X Carlos Calhoun MD X PROGRESS NOTE
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
--- NOTE | ~2017-05-21 | HP ---
Unit #: [id number] #: [id number] Patient: ALLY CHO [id number] [facility] [address] [place] [address] [id number] I MR#: [id number] NAME: ALLY CHO. ROOM: P202 Age: 42 Sex: F Admission Date: 05/21/2017 : 1975 Attending Physician: Carlos Calhoun M.D. Admitting Physician: Carlos Calhoun M.D. Primary Care Physician: Generic Doctor Not In System HISTORY AND PHYSICAL The patient is a 42-year-old male admitted to [address] [place] [address] on 05/21/2017 for suicidal ideations and polysubstance use. The patient had a recent admission on 04/23/2017 where a full history and physical was completed. That history and physical has been reviewed. No changes need to be made. Dictated by... Krystyna Dumont/jt TD: 05/23/2017 05:16 JOB #: [id number] HISTORY AND PHYSICAL Page 1 of 1 X MITUL HAHN APRN X HISTORY AND PHYSICAL
--- NOTE | ~2017-05-21 | PA ---
Unit #: [id number] #: [id number] Patient: ALLY CHO [id number] [facility] [address] [place] [address] [id number] I MR#: [id number] NAME: ALLY CHO. ROOM: P202 Age: 42 Sex: F Admission Date: 05/21/2017 : 1975 Date of Assessment: 05/22/2017 Attending Physician: Carlos Calhoun M.D. Admitting Physician: Carlos Calhoun M.D. Primary Care Physician: Generic Doctor Not In System PSYCHIATRIC ASSESSMENT IDENTIFYING INFORMATION The patient is a 42-year-old white female admitted to the [address] [place] [address] with suicidal ideation. INFORMANT(S) The patient, patient's reliability fair. CHIEF COMPLAINT This time I am going to get help. HISTORY OF PRESENT ILLNESS The patient is a 42-year-old white female well known to this physician for multiple previous admissions to this facility. She is readmitted with recurrence of abuse of heroin, cocaine and alcohol. The patient was reporting some suicidal ideation at the time of admission as well as some auditory hallucinations as well as some paranoid thinking. When seen today the patient is pleasant and cooperative but was as is generally her case agitated at the time of admission. She is expressing interest in residential chemical dependence treatment during today's interview. For more complete history of present illness please refer to previous dictated notes. PAST PSYCHIATRIC HISTORY Reviewed, no changes. PAST MEDICAL HISTORY Reviewed, no changes. MEDICATIONS None. ALLERGIES Haloperidol, ketorolac, oxycodone, quetiapine. FAMILY HISTORY Reviewed, no changes. SOCIAL HISTORY Reviewed, no changes. MENTAL STATUS EXAM At this time, reveals the patient to be an obese, disheveled, white female Unit #: [id number] #: [id number] Patient: ALLY CHO appearing her stated age. She is dressed in hospital garb. She is awake, alert, oriented in all spheres. Her mood is dysphoric. Her affect constricted. Speech is generally relevant and coherent. There are no gross deficits in memory or cognition noted. Intelligence is judged to be in the average range based on fund of knowledge. The patient is cooperative throughout the interview. She is currently endorsing positive suicidal ideation. She denies homicidal ideation. She reports some paranoid thinking. Her judgment and insight appear to be significantly impaired. ASSETS AND LIABILITIES Patient's assets to be assessed. Liabilities, lack of resources. DIAGNOSTIC IMPRESSION 1. Opioid use disorder. 2. Alcohol use disorder. 3. Cocaine use disorder. 4. Antisocial personality disorder. 5. Hepatitis C. 6. Degenerative disc disease. 7. History of pituitary tumor. 8. Asthma. 9. Hypertension. PSYCHIATRIC PLAN/TREATMENT GOALS The patient remains hospitalized for safety and stabilization. A routine detoxification protocols are in place. The patient will participate in appropriate brandt and milieu activities. It will be our hope to refer the patient for residential chemical dependence treatment. Her past pattern has been to leave the hospital prior to any such arrangement generally under less than optimal circumstances. ESTIMATED LENGTH OF STAY Seven days. Dictated by... Carlos Calhoun M.D. MISAEL/jt TD: 05/23/2017 02:12 JOB #: [id number] PSYCHIATRIC ASSESSMENT Page 1 of 1 X Carlos Calhoun MD X PSYCHIATRIC ASSESSMENT
[2017-05-22 11:48] LABS: URINE APPEARANCE TURBID; URINE BILIRUBIN NEG (NEG); URINE BLOOD NEG (NEG); URINE COLOR DK YELLOW; URINE GLUCOSE NEG (NEG); URINE KETONE NEG (NEG); URINE LEUKOCYTE ESTERASE NEG (NEG); URINE NITRATE NEG (NEG); URINE PH 6.5 (5-8); URINE PROTEIN NEG (NEG); URINE SPECIFIC GRAVITY 1.019 (1.003-1.035); URINE UROBILINOGEN 0.2 MG/DL (NEG)
[2017-05-22 12:48] LABS: AMPHETAMINE NEG (NEG); BARBITURATES NEG (NEG); BENZODIAZEPINES POS (NEG); COCAINE NEG (NEG); MARIJUANA NEG (NEG); OPIATES NEG (NEG); TRICYCLIC ANTIDEPRESSANTS NEG (NEG); U METHADONE NEG (NEG)
[2017-05-23 09:58] LABS: ALBUMIN SERUM 3.6 g/dL (3.5-5.0); BILIRUBIN,TOTAL 0.6 mg/dL (0.2-2.0); BUN/CREATININE RATIO 14.44; CALCIUM SERUM 8.8 mg/dL (8.4-10.2); CREATININE SERUM 0.9 mg/dL (0.6-1.4); GLOM FILT RATE Estimated 78.4 mL/min (>60); POTASSIUM 4.1 mmol/L (3.5-5.1); PROTEIN TOTAL SERUM 6.4 g/dL (6.0-8.3)
[2017-05-23 10:13] LABS: BASOPHIL% 0.7 % (0-2.5); EOSINOPHIL# 0.2 X10e3 (0-0.7); EOSINOPHIL% 5.1 % (0.0-7.0); HEMATOCRIT 37.3 % (35.0-45.0); HEMOGLOBIN 12.4 gm/dL (12.0-16.0); LYMPHOCYTE# 1.4 X10e3 (1.0-3.5); LYMPHOCYTE% 37.9 % (17.0-45.0); MEAN CELL VOLUME 94.4 FL (83-96); MEAN CORPUSCULAR HEMOGLOBIN 31.5 PG (28-34); MEAN CORPUSCULAR HGB CONC 33.3 g/dL (30-36); MEAN PLATELET VOLUME 9.1 FL (6.5-11.5); MONOCYTE# 0.5 X10e3 (0-1.0); MONOCYTE% 12.6 % (3.0-12.0); NEUTROPHIL# 1.6 X10e3 (1.5-7.1); NEUTROPHIL% 43.7 % (40-75); PLATELET COUNT 200 X10e3 (140-420); RED BLOOD COUNT 3.95 X10e (3.90-5.30); RED CELL DISTRIBUTION WIDTH 13.7 % (11.0-15.5); WHITE BLOOD COUNT 3.8 X10e3 (4.0-10.5)
[2017-05-23 10:25] LABS: DIFF IND NO
== END 2017-05-24 14:30 | disposition home or self-care (01) | DRG 897 ==
LOC: P1S 19:30 → P2S 19:30 → P1S 05-23 16:47
PROVIDERS: Specialist
PROC: HZ2ZZZZ Detoxification Services for Substance Abuse Treatment (ICD-10-PCS; principal; 2017-05-21)
DX: F11.10 Opioid abuse, uncomplicated (principal); R45.851 Suicidal ideations; F15.10 Other stimulant abuse, uncomplicated; F10.10 Alcohol abuse, uncomplicated; F60.2 Antisocial personality disorder; F34.1 Dysthymic disorder; F17.210 Nicotine dependence, cigarettes, uncomplicated; J45.909 Unspecified asthma, uncomplicated; I10 Essential (primary) hypertension
CPT/HCPCS: 80053; 80307; 81003; 84703; 85025; J3230